=== PATIENT | male | born 1975 | race Caucasian/White ===

== ENCOUNTER 2016-12-09 08:45 | Day surgery (SDC) | payer MEDICAID, OTHER ==
[~2016-12-09] VITALS: Ht 165.1 cm; Wt 112.7 kg
[~2016-12-09 08:45] MED LIST: HYDR-3965 PO; IBUP-2070 PO; ONDA4 PO; TRAM50TA4 PO
[2016-12-09] MEDS ORDERED: SODIUM CHLORIDE 0.9% 1,000 ML IV ONE ×2 (08:57→09:00)
[2016-12-09 11:25] VITALS: BP 137/94
[2016-12-09] MEDS ORDERED: LIDOCAINE HCL/PF 1% 30 ML VIAL ONE (11:28)
[2016-12-09] MEDS ORDERED: IOHEXOL 300 MG/ML 10 ML VIAL ONE (11:28)
[2016-12-09] MEDS ORDERED: SODIUM BICARBONATE 50 MEQ/50 ML VIAL ONE (11:29)
[2016-12-09 11:35] VITALS: BP 141/98
[2016-12-09] MEDS ORDERED: LIDOCAINE 1% 30 ML/SOD BICARB 8.4% 4 ML SQ ONE (12:00)
[2016-12-09] MEDS ORDERED: IOHEXOL 300 MG/ML 10 ML VIAL IARTIC ONE (12:00)
== END 2016-12-09 12:10 | disposition home or self-care (01) ==
LOC: SDS 08:45
PROVIDERS: ATTEND Physical Medicine & Rehabilitation Pain Medicine
DX: M54.16 Radiculopathy, lumbar region (principal); F17.210 Nicotine dependence, cigarettes, uncomplicated
CPT/HCPCS: 64483; J1040; J3490 ×2; J7030; Q9967

== ENCOUNTER 2017-10-23 08:56 | Day surgery (SDC) | payer OTHER ==
[~2017-10-23] VITALS: Ht 165.1 cm; Wt 109.1 kg
[~2017-10-23 08:56] MED LIST changes: -HYDR-3965 PO; -IBUP-2070 PO; +IBUP-2071 PO; -ONDA4 PO; -TRAM50TA4 PO
[2017-10-23] MEDS ORDERED: SODIUM CHLORIDE 0.9% 1,000 ML IV ONE ×2 (09:15→10:00)
[2017-10-23] MEDS ORDERED: BUPIVACAINE HCL/PF 0.75% 10 ML VIAL ONE (12:38)
[2017-10-23] MEDS ORDERED: IOHEXOL 300 MG/ML 10 ML VIAL ONE (12:39)
[2017-10-23] MEDS ORDERED: TRIAMCINOLONE ACETONIDE 40 MG/ML VIAL ONE (12:39)
[2017-10-23] MEDS ORDERED: LIDOCAINE HCL/PF 1% 30 ML VIAL ONE (12:39)
[2017-10-23 12:41] VITALS: BP 168/85
[2017-10-23] MEDS ORDERED: IOHEXOL 300 MG/ML 10 ML VIAL IARTIC ONE (12:45)
[2017-10-23] MEDS ORDERED: BUPIVACAINE HCL/PF 0.75% 10 ML VIAL IARTIC ONE (12:45)
[2017-10-23] MEDS ORDERED: TRIAMCINOLONE ACETONIDE 40 MG/ML VIAL IARTIC ONE (12:45)
[2017-10-23 12:52] VITALS: BP 161/90
== END 2017-10-23 13:35 | disposition home or self-care (01) ==
LOC: SDS 08:56
PROVIDERS: ATTEND Physical Medicine & Rehabilitation Pain Medicine
DX: M54.16 Radiculopathy, lumbar region (principal); Z91.013 Allergy to seafood; Z72.89 Other problems related to lifestyle; Z90.49 Acquired absence of other specified parts of digestive tract; Z79.1 Long term (current) use of non-steroidal anti-inflammatories (NSAID)
CPT/HCPCS: 64483; 72275; J3301; J3490 ×2; J7030; Q9967

== ENCOUNTER 2019-09-01 10:53 | Emergency (ER) | payer OTHER ==
[~2019-09-01] VITALS: Ht 165.1 cm; Wt 97.7 kg
[2019-09-01 12:35] LABS: APPEARANCE,URINE TURBID (CLEAR); GLUCOSE, URINE (UA) NEGATIVE (NEGATIVE); KETONES,URINE TRACE mg/dL (NEGATIVE); LEUKOCYTE ESTERASE ,URINE MODERATE (NEGATIVE); NITRATE,URINE POSITIVE (NEGATIVE); OCCULT BLOOD,URINE LARGE (NEGATIVE); PH,URINE 5.5 (5.0-8.0); PROTEIN,URINE SEE CONFIRM (NEGATIVE)
[2019-09-01 12:39] LABS: BILIRUBIN,URINE PRELIM. POSITIVE (NEGATIVE)
[2019-09-01 12:40] LABS: RBC,URINE >100 /HPF (0-2); SULFOSALICYLIC ACID,URINE 3+ (Negative)
[2019-09-01 12:41] LABS: BACTERIA,URINE Many /HPF (None Seen); RENAL EPITHELIAL CELLS,URINE Few /LPF (None Seen)
[2019-09-01] MEDS ORDERED: ACETAMINOPHEN 500 MG TABLET PO ONE (13:30)
[2019-09-01] MEDS ORDERED: IBUPROFEN 600 MG TABLET PO ONE (13:30)
[2019-09-01] MEDS ORDERED: CEPHALEXIN MONOHYDRATE 500 MG CAPSULE PO ONE (13:30)
[2019-09-01 14:06] VITALS: BP 133/90
== END 2019-09-01 14:10 | disposition home or self-care (01) ==
LOC: EMS 10:54
DX: N39.0 Urinary tract infection, site not specified (principal); Z90.89 Acquired absence of other organs
CPT/HCPCS: 87086